=== PATIENT | female | born 1960 | race African-American/Black ===

== ENCOUNTER 2019-07-16 19:58 | Emergency (ER) | payer MEDICAID, MEDICARE ==
[~2019-07-16] VITALS: Ht 170.2 cm; Wt 75.0 kg
[~2019-07-16 19:58] MED LIST: AMLO10TA80 PO; ARIP20TA2 PO; BRIN8DRO OP; MONT10TA21 PO; OMEP40CA34 PO; SERT100T PO
[2019-07-16] MEDS ORDERED: ACETAMINOPHEN 650MG/20.3ML UDC PO ONE (21:15)
[2019-07-16 23:47] VITALS: BP 120/80
== END 2019-07-16 23:48 | disposition home or self-care (01) ==
LOC: ER 20:08
DX: S09.8XXA Other specified injuries of head, initial encounter (principal); I10 Essential (primary) hypertension; Z88.8 Allergy status to other drugs, medicaments and biological substances; W01.0XXA Fall on same level from slipping, tripping and stumbling without subsequent striking against object, initial encounter; Y93.89 Activity, other specified; Y92.018 Other place in single-family (private) house as the place of occurrence of the external cause
CPT/HCPCS: 99284

== ENCOUNTER 2022-07-15 11:34 | Emergency (ER) | payer MEDICARE, MEDICAID ==
[~2022-07-15] VITALS: Ht 170.2 cm; Wt 70.0 kg
[~2022-07-15 11:34] MED LIST changes: +OMEP40CA20 PO; -OMEP40CA34 PO
[2022-07-15 12:43] VITALS: BP 165/73
[2022-07-15] MEDS ORDERED: DOXY100C5 MT (15:24)
[2022-07-15] MEDS ORDERED: IBUP-2028 MT (15:24)
[2022-07-15] MEDS ORDERED: LIDOCAINE HCL 1% 20ML VIAL (Pyxis) INJ INFIL ONE (15:30)
[2022-07-15] MEDS ORDERED: CEFTRIAXONE SODIUM 500 MG/VIAL IM ONE (15:30)
[2022-07-15] MEDS ORDERED: KETOROLAC 60MG/2ML VIAL IM ONE (15:30)
== END 2022-07-15 16:25 | disposition left against medical advice (07) ==
LOC: ER 11:43
DX: N89.8 Other specified noninflammatory disorders of vagina (principal); Z20.2 Contact with and (suspected) exposure to infections with a predominantly sexual mode of transmission; G89.29 Other chronic pain; M25.561 Pain in right knee; I10 Essential (primary) hypertension
CPT/HCPCS: 99281; 99284

== ENCOUNTER 2023-05-26 22:08 | Emergency (ER) | payer MEDICARE, MEDICAID ==
[~2023-05-26] VITALS: Ht 30.5 cm; Wt 0.5 kg
[~2023-05-26 22:08] MED LIST changes: +DOXY100C5 MT; +IBUP-2028 MT; +MONT-46 PO; -MONT10TA21 PO
[2023-05-26 22:20] VITALS: O2SAT 100
[2023-05-26] MEDS ORDERED: SODIUM CHLORIDE 0.9% 1,000 ML IV ONE (22:45)
[2023-05-26] MEDS ORDERED: KETOROLAC 15MG/ML VIAL IV ONE (22:45)
[2023-05-26] MEDS ORDERED: ONDANSETRON HCL 4MG/2ML INJ IV NR (23:00)
[2023-05-26] MEDS ORDERED: NICO-789 TP (23:00)
[2023-05-26] MEDS ORDERED: GABA-290 PO (23:00)
[2023-05-26] MEDS ORDERED: BRIM.2 EACHEYE (23:00)
[2023-05-26] MEDS ORDERED: KETOROLAC 30MG/ML VIAL IV NR (23:00)
[2023-05-26] MEDS ORDERED: DOCU-150 PO (23:00)
[2023-05-26] MEDS ORDERED: DORZ10DR8 EACHEYE (23:00)
[2023-05-26] MEDS ORDERED: OMEP1PAC5 PO (23:00)
[2023-05-26] MEDS ORDERED: FOLI-43 PO (23:00)
[2023-05-26] MEDS ORDERED: CALC-26 PO (23:00)
[2023-05-26] MEDS ORDERED: FERR325T30 PO (23:00)
[2023-05-26] MEDS ORDERED: MELO-105 PO (23:00)
[2023-05-26] MEDS ORDERED: ERGO1250 PO (23:00)
[2023-05-26] MEDS ORDERED: ARIP10TA PO (23:00)
[2023-05-26] MEDS ORDERED: MULT-624 PO (23:00)
[2023-05-27 00:33] LABS: BASOPHILS % 0.5 % (0.0-2.0); DIFFERENTIAL COMMENT 0; EOSINOPHILS % 0.7 % (0.0-5.0); HEMATOCRIT. 35.7 % (36.0-48.0); HEMOGLOBIN. 11.8 g/dL (12.0-16.0); LYMPHOCYTES % 16.1 % (20.0-50.0); MEAN CORPUSCULAR HEMOGLOBIN 25.4 pg (28.0-32.0); MEAN CORPUSCULAR VOLUME 77.1 fL (81.0-99.0); MEAN PLATELET VOLUME 7.7 fl (7.4-10.4); MONOCYTES % 12.4 % (2.0-8.0); NEUTROPHILS % 70.3 % (40.0-76.0); PLATELET 378 x1000/uL (130-400); RED BLOOD CELL COUNT 4.64 mill/uL (4.2-5.4); RED CELL DISTRIBUTION WIDTH 18.8 % (11.6-14.6); WHITE BLOOD COUNT 8.9 x1000/uL (4.5-11.0)
[2023-05-27 00:40] LABS: CHLORIDE 105 mEq/L (98-107); INDEX HEMOLYSI 2 (1-3); INDEX ICTERIC 1 (1-4); INDEX LIPEMIC 1 (1-3); SODIUM 140 mEq/L (136-145)
[2023-05-27 00:44] LABS: INR 1.1
[2023-05-27 00:50] LABS: ALANINE AMINOTRANSFERASE 18 IU/L (13-61); ALBUMIN 2.8 g/dL (3.4-5.0); ASPARTATE AMINOTRANSFERASE 44 IU/L (15-37); BILIRUBIN TOTAL 0.5 mg/dL (0.1-1.0); CALCIUM 8.5 mg/dL (8.5-10.1); CARBON DIOXIDE 29 mEq/L (21-32); CREATININE 0.7 mg/dL (0.6-1.3); GLUCOSE 115 mg/dL (70-105); PROTEIN TOTAL 8.1 g/dL (6.0-8.3); UREA NITROGEN BLOOD 5 mg/dL (7-21)
[2023-05-27 01:12] LABS: POTASSIUM 2.6 mEq/L (3.5-5.1)
[2023-05-27] MEDS ORDERED: POTASSIUM CHLORIDE 20MEQ/PACKET PO NR (01:30)
[2023-05-27] MEDS ORDERED: KCL 20MEQ/100ML PREMIX 100 ML IV NR (02:00)
[2023-05-27 04:45] LABS: CALCIUM 7.6 mg/dL (8.5-10.1); CARBON DIOXIDE 24 mEq/L (21-32); CHLORIDE 113 mEq/L (98-107); INDEX HEMOLYSI 1 (1-3); INDEX ICTERIC 1 (1-4); INDEX LIPEMIC 1 (1-3); POTASSIUM 3.4 mEq/L (3.5-5.1); SODIUM 140 mEq/L (136-145)
[2023-05-27 04:50] LABS: CREATININE 0.6 mg/dL (0.6-1.3); GLUCOSE 116 mg/dL (70-105); UREA NITROGEN BLOOD 4 mg/dL (7-21)
[2023-05-27] MEDS ORDERED: POTA-204 MT (05:26)
[2023-05-27] MEDS ORDERED: ONDA4TAB50 MT (05:26)
[2023-05-27] MEDS ORDERED: ACET-2708 MT (05:26)
[2023-05-27 06:51] VITALS: BP 134/72; PULSE 65; RESP 20; TEMP 98.3
== END 2023-05-27 06:53 | disposition home or self-care (01) ==
LOC: ER 22:08
DX: E87.6 Hypokalemia (principal); R10.30 Lower abdominal pain, unspecified; F17.200 Nicotine dependence, unspecified, uncomplicated; F14.90 Cocaine use, unspecified, uncomplicated; I10 Essential (primary) hypertension; M19.90 Unspecified osteoarthritis, unspecified site
CPT/HCPCS: 99285; 36415 ×2; 74177; 96365; 96375; 96361; 96366; 80053; 83605; 83690; 85025; 85610; 80048; J1885; J2405; J7030; J3480

== ENCOUNTER 2023-09-29 16:54 | Emergency (ER) | payer MEDICARE, MEDICAID ==
[~2023-09-29] VITALS: Ht 170.2 cm; Wt 53.0 kg
[~2023-09-29 16:54] MED LIST changes: +ACET-2708 MT; +ARIP10TA PO; +BRIM.2 EACHEYE; -BRIN8DRO OP; +CALC-26 PO; +DOCU-150 PO; +DORZ10DR8 EACHEYE; -DOXY100C5 MT; +ERGO1250 PO; +FERR325T30 PO; +FOLI-43 PO; +GABA-290 PO; -IBUP-2028 MT; +MELO-105 PO; -MONT-46 PO; +MULT-624 PO; +NICO-789 TP; +OMEP1PAC5 PO; -OMEP40CA20 PO; +ONDA4TAB50 MT; +POTA-204 MT
[2023-09-29 17:08] VITALS: TEMP 97.8; O2SAT 97
[2023-09-29 21:25] VITALS: BP 112/70; PULSE 66; RESP 17
== END 2023-09-29 21:30 | disposition home or self-care (01) ==
LOC: ER 16:54
DX: S09.90XA Unspecified injury of head, initial encounter (principal); F31.9 Bipolar disorder, unspecified; J44.9 Chronic obstructive pulmonary disease, unspecified; I10 Essential (primary) hypertension; Z79.899 Other long term (current) drug therapy; W18.39XA Other fall on same level, initial encounter; Y93.89 Activity, other specified; Y92.89 Other specified places as the place of occurrence of the external cause; Y99.8 Other external cause status
CPT/HCPCS: 99284